=== PATIENT | female | born 1950 | race Caucasian/White ===

== ENCOUNTER → 2023-02-06 13:02 | Outpatient (BNVA) | payer MEDICARE, SELFPAY | PROVIDERS: PCP Internal Medicine; Visit Provider Nurse Practitioner Family | DX: J44.9 Chronic obstructive pulmonary disease, unspecified (principal); F17.200 Nicotine dependence, unspecified, uncomplicated; Z79.52 Long term (current) use of systemic steroids | CPT/HCPCS: 94618; 96372; 99202; J2930 ==

== ENCOUNTER 2023-03-07 10:44 | Outpatient (REF) | payer MEDICARE, SELFPAY ==
--- NOTE | ~2023-03-07 | CT_ITS ---
EXAMINATION: CT CHEST WITHOUT CONTRAST CLINICAL INFORMATION: COPD COMPARISON: None available. TECHNIQUE: Multidetector volumetric CT imaging of the chest was done. Axial MIP volume rendering provided. Sagittal and coronal reformatted images were obtained. This CT examination was performed using dose optimization techniques as appropriate, variously including the following: *Automated exposure control *Adjustment of mA and/or kV according to patient size (this includes techniques or standardized protocols for targeted exams where dose is matched to indication/reason for exam; i.e. extremities or head) *Use of iterative reconstruction technique DLP: 106 mGy-cm FINDINGS: LUNGS: Apical scarring is present, left greater than right. Scattered punctate calcified granulomas are seen (for example 6:39 and 54). No significant bullous changes are seen. There is some mild subpleural reticular change most prominent in the left upper lobe anteriorly (for example 6:97) which may represent some very early fibrosis. Right middle lobe and lingular scarring are present. No consolidations. MEDIASTINUM: Heart size normal. No mediastinal or hilar lymphadenopathy. Unremarkable aorta aside from calcific plaque. CORONARY ARTERY CALCIFICATION: Moderate PLEURA: There is no pleural effusion. No pleural mass or thickening. AXILLA: No lymphadenopathy. UPPER ABDOMEN: There is a 2 mm left upper pole renal calculus present. A calcified granuloma is noted on the surface of the liver (12:58). OSSEOUS STRUCTURES: Unremarkable. CT/CT chest wo IV con IMPRESSION: 1. No worrisome lung mass is seen. 2. No convincing evidence of emphysema. 3. Incidental note made of some punctate calcified granulomas, some mild subpleural reticular changes which may represent some early fibrosis. 4. Incidental note made of a 2 mm left upper pole nonobstructing renal calculus and a calcified hepatic granuloma. Fleischner guidelines were followed.
== END 2023-03-07 10:45 | disposition home or self-care (01) ==
LOC: HO.CT 10:44
PROVIDERS: PCP Internal Medicine; Visit Provider Nurse Practitioner Family
DX: J44.9 Chronic obstructive pulmonary disease, unspecified (principal); F17.200 Nicotine dependence, unspecified, uncomplicated
CPT/HCPCS: 71250

== ENCOUNTER → 2023-03-20 10:47 | Outpatient (BNVA) | payer MEDICARE, SELFPAY | PROVIDERS: PCP Internal Medicine; Visit Provider Nurse Practitioner Family | DX: J44.9 Chronic obstructive pulmonary disease, unspecified (principal); F17.200 Nicotine dependence, unspecified, uncomplicated | CPT/HCPCS: 99212 ==

== ENCOUNTER 2023-04-11 11:17 | Outpatient (REF) | payer MEDICARE, SELFPAY ==
--- NOTE | 2023-04-11 12:16 | PFT_ITS ---
FLOWS: 1. FEV1 60% of predicted at 1.16 L. 2. FVC 86% of predicted at 2.20 L. 3. FEV1 to FVC ratio of 0.53. 4. No bronchodilator response. LUNG VOLUMES: 1. Total lung capacity 95% of predicted at 4.38 L. 2. Residual volume 111% of predicted at 2.23 L. 3. Slow vital capacity 81% of predicted at 2.05 L. 4. Expiratory reserve volume 80% of predicted at 0.43 L. 5. Diffusion capacity is mildly decreased. IMPRESSION: Moderate obstructive and ventilatory defect with no bronchodilator response. Decreased diffusion capacity suggests emphysema. Carson Gillis MD AP/MODL / [id number]
== END 2023-04-11 11:18 | disposition home or self-care (01) ==
LOC: HO.RESP 11:17
PROVIDERS: PCP Internal Medicine; Visit Provider Nurse Practitioner Family
DX: J44.9 Chronic obstructive pulmonary disease, unspecified (principal)
CPT/HCPCS: 94060; 94727; 94729

== ENCOUNTER → 2023-04-11 12:16 | Outpatient (BNV) | payer MEDICARE, SELFPAY | PROVIDERS: PCP Internal Medicine; Visit Provider Internal Medicine Pulmonary Disease | DX: J44.9 Chronic obstructive pulmonary disease, unspecified (principal) | CPT/HCPCS: 94060; 94727; 94729 ==

== ENCOUNTER 2025-08-14 14:12 | Outpatient (AMB) | payer MEDICARE, SELFPAY ==
--- NOTE | 2025-08-14 14:14 | MHC.OFFVIS ---
Vital Signs 08/14/25 14:15 Height 5 ft 1 in Weight 106 lb 6 oz BMI 20.1 BP 120/58 L Blood Pressure Location Rt brachial Position Sitting Pulse 85 Pulse Source Pulse Oximeter Pulse Oximetry (%) 97 Oxygen Delivery Method Room Air Intake Visit Reasons: COPD Allergies Penicillins Allergy (Severe, Verified 08/14/25 14:17) Anaphylaxis HPI HPI COPD: Details: Julee is a very pleasant 75 year old female, 55+ pack-year smoker with underlying COPD and anxiety. She was last seen in 2022, lost to follow up and presents to reestablish care. PFT 2022 demonstrated moderate COPD and prior chest CT 02/2023 demonstrated punctate calcified granulomas, some mild subpleural reticular changes which may represent some early fibrosis otherwise unremarkable. Patient admitted over the summer for acute respiratory failure with hypoxia secondary to COPD exacerbation, CXR at that time unremarkable and had been discharged with supplemental oxygen, 2L continuously. She states that she recently returned the O2 as she did not feel she was benefitting from it and not interested in pursuing again. She also reported she is no longer on Trelegy as the cost is too expensive, she has been without for two weeks, using chronic prednisone 5 mg QD and albuterol MDI multiple times per week. She does not have a nebulizer for home use. She continues to report dyspnea with moderate exertion with intermittent wheezing and cough. Of note, patient continues to smoke and is planning on cessation in September. [facility] Social History Patient Tobacco Use Status: Current everyday Tobacco user Tobacco use type: Cigarette Cigarette Packs Per Day: 1 Cigarettes Per Day: 20 Years Smoked: 50+ Review of Systems Const Denies chills, Denies excessive sweating, Denies fever(s), Denies headache(s), Denies night sweats and Denies weight loss Eyes Denies dry eyes, Denies irritation and Denies itchy eyes ENT Reports Normal hearing present, Denies headache(s), Denies nasal congestion, Denies nasal discharge, Denies post nasal drip and Denies sore throat Card Denies chest pain, Denies chest pain at rest, Denies chest pain with activity, Denies claudication, Denies leg edema, Denies orthopnea and Denies paroxysmal nocturnal dyspnea Resp Denies pain on inspiration, Denies pain with cough and Denies stridor Neuro Reports Normal hearing present and Denies headache(s) Endo Denies excessive sweating Esteban/Lymph Denies lymphadenopathy Aller/Immun Denies itchy eyes and Denies seasonal rhinorrhea Physical Exam Vital Signs: Last Vital Signs Pulse 85 08/14/25 14:15 BP 120/58 L 08/14/25 14:15 Pulse Ox 97 08/14/25 14:15 Oxygen Delivery Method Room Air 08/14/25 14:15 BMI result Body Mass Index 20.1 Const General: cooperative, healthy appearing, no acute distress, well developed and alert Orientation/consciousness: patient oriented x3 Limitations: no limitations HEENT Head: Yes normal to inspection, Yes normocephalic and Yes atraumatic Ears: hearing grossly normal bilaterally and external ears normal Eyes General: appearance normal, both eyes and all related structures Eyelids: Yes eyelids normal Sclerae: sclerae normal EOM: EOMs intact bilaterally Neck Neck: Yes normal visual inspection and Yes no lymphadenopathy Lymphatic: no lymphadenopathy noted Chest Chest palpation & inspection: normal inspection of the chest Resp Effort & Inspection: normal respiratory effort, able to speak in complete sentences, no audible wheezes, no cough, no stridor, not tachypneic, no tripod positioning and no use of accessory muscles Auscultation: no crackles, no rhonchi, no wheezes and diminished lung sounds Cardio Jugular venous distension: no JVD Rate: regular rate Rhythm: regular rhythm Skin Other: warm, dry General skin exam: no rashes or lesions noted Neuro General: patient oriented x3 Cranial nerves: Yes Normal hearing present Cognition (Neuro): normal cognition Gait exam (Neuro): Normal gait present Extrem General: Yes normal to inspection, Yes capillary refill normal, Yes no clubbing, cyanosis or edema and Yes no pedal edema Psych Appearance: grossly normal and well kempt Speech and movement: Normal speech and movement present and Clear speech present Affect: normal affect Attitude: cooperative Thought process: Normal thought process present Thought content: Normal thought content present Insight: Good insight present (Psych) Judgement: Good judgement present (Psych) Results Reviewed Results Reviewed: RESULT: Chest 2 Views Frontal and Lat Chest 2 Views Frontal and Lat Hx of Present Illness: SOB worse over the past week. Worse on exertion. Denies fever. +Cough. Also c o chest tightness.; Reason: Chest Pain COMPARISON: None. FINDINGS: LINES AND TUBES: None. LUNGS AND PLEURA: Clear lungs. Normal pulmonary vascularity. No evidence of pleural effusion. No pneumothorax. HEART, MEDIASTINUM AND LUCIANO: Heart is normal in size. Normal mediastinal and hilar contour. BONES AND SOFT TISSUES: No acute abnormality. IMPRESSION: No acute abnormality. WSN: [id number] Ordering Physician: Romulo Ramirez I Reason For Exam Chest Pain;Other: Signature Line Dictated By: Mehdi Jaimes MD Dictated Date/Time: 05/18/25 12:48 p Reviewed By: Mehdi Jaimes MD Signed By: Mehdi Jaimes MD Signed Date/Time: 05/18/25 12:48 pm Transcribed By: [address] [address] [address] Scan Report Signed Patient: Julee Henao MR#: [id number] : 1950 Acct:[id number] Age/Sex: 72 / F ADM Date: 03/07/23 Loc: HO.CT Attending Dr: Anca Saxena NP Ordering Physician: Anca Saxena NP Date of Service: 03/07/23 Procedure(s): CT chest wo IV con Accession Number(s): [id number] cc: Anca Saxena NP~ EXAMINATION: CT CHEST WITHOUT CONTRAST CLINICAL INFORMATION: COPD COMPARISON: None available. TECHNIQUE: Multidetector volumetric CT imaging of the chest was done. Axial MIP volume rendering provided. Sagittal and coronal reformatted images were obtained. This CT examination was performed using dose optimization techniques as appropriate, variously including the following: *Automated exposure control *Adjustment of mA and/or kV according to patient size (this includes techniques or standardized protocols for targeted exams where dose is matched to indication/reason for exam; i.e. extremities or head) *Use of iterative reconstruction technique DLP: 106 mGy-cm FINDINGS: LUNGS: Apical scarring is present, left greater than right. Scattered punctate calcified granulomas are seen (for example 6:39 and 54). No significant bullous changes are seen. There is some mild subpleural reticular change most prominent in the left upper lobe anteriorly (for example 6:97) which may represent some very early fibrosis. Right middle lobe and lingular scarring are present. No consolidations. MEDIASTINUM: Heart size normal. No mediastinal or hilar lymphadenopathy. Unremarkable aorta aside from calcific plaque. CORONARY ARTERY CALCIFICATION: Moderate PLEURA: There is no pleural effusion. No pleural mass or thickening. AXILLA: No lymphadenopathy. UPPER ABDOMEN: There is a 2 mm left upper pole renal calculus present. A calcified granuloma is noted on the surface of the liver (12:58). OSSEOUS STRUCTURES: Unremarkable. CT/CT chest wo IV con IMPRESSION: 1. No worrisome lung mass is seen. 2. No convincing evidence of emphysema. 3. Incidental note made of some punctate calcified granulomas, some mild subpleural reticular changes which may represent some early fibrosis. 4. Incidental note made of a 2 mm left upper pole nonobstructing renal calculus and a calcified hepatic granuloma. Fleischner guidelines were followed. Dictated By: Claude Giang MD Signed By: <Electronically signed by Claude Giang MD in OV> 03/16/23 1227 DD/ 1126 TD/TT: Email Marketing Intern: MARY Assessment & Plan Assessment & Plan (1) COPD (chronic obstructive pulmonary disease): Code(s): J44.9 - Chronic obstructive pulmonary disease, unspecified Category: Medical (2) Tobacco dependence: Code(s): F17.200 - Nicotine dependence, unspecified, uncomplicated Category: Medical (3) History of acute respiratory failure: Code(s): Z87.09 - Personal history of other diseases of the respiratory system Category: Medical Plan At this time, Julee is agreeable to trial Symbicort as Trelegy was not financially feasible. She is aware to call if unable to obtain. We discussed trialing all nebulized therapy however she declined. She was not interested in repeating a PFT or overnight oximetry to assess her need for supplemental oxygen a NOC. There was question of early fibrosis with noted subpleural reticular changes on prior CT chest 02/2023 in addition to continued smoking, will repeat chest CT to assess for progression. She is requesting this order to be sent to [facility]. She is aware if her symptoms worsen or do not improve to call the office. All questions were answered and patient is in agreement of plan. Will follow up in 3 months or sooner if needed. Orders: Orders CT chest wo IV con Today R09.02 - Hypoxemia Medications: New albuterol sulfate 90 mcg/actuation 2 puffs inhalation Q4-6H PRN 1 ea 3RF shortness of breath or wheezing budesonide-formoterol 160-4.5 mcg/actuation (Symbicort) 2 puffs inhalation Q12H 10.2 grams 3RF Coding Level of Care Code Est Pt Level 4 (58806) Diagnoses COPD (chronic obstructive pulmonary disease) J44.9 Tobacco dependence F17.200 History of acute respiratory failure Z87.09
[2025-08-14 14:15] VITALS: BP 120/58; PULSE 85; O2SAT 97; BMI 20.1
--- OUTSIDE RECORDS SUMMARY | 2025-08-14 14:33 | XMS_ITS | Encounter Summary ---
Author Organization [email or web address] Address [address] [place] [address] Care Team Providers Care Secy Name Role Phone Tiffanie Miller SECRETARY OF POLICE Primary Care Provider Unavailable Rina Dubon Unavailable Unavailable Inactive/Transferred Primary Care Provider Unava ilable Reason for Visit * Reason Comments Med Refill Encounter Details Date Type Department Care Team (Late st Contact Info) Description 12/06/2023 Refill [place] [facility] [address] [place] [address] Adele Hutchins FNP Other osteoporosis without current pathological fracture; Vitamin D deficiency Social History Tobacco Use Types Packs/Day Years Used Date Smoking Tobacco: Every Day Cigarettes 1 58.9 Started: 1966 Smokeless Tobacco: Never Comments:Trying to cut down. Alcohol Use Standard Drinks/Week Comments Yes 0 (1 standard drink = 0.6 oz pur e alcohol) Rare beer intake Housing Stability Answer Date Recorded What is your housing situation today? I have marieva haywood 11/14/[address] you li ve. Do you have problems with any of the following? None of the above 11/14/2023 Food Insecurity Answer Date Recorded Within the past 12 months, y ou worried that your food would run out before you got money to buy more: Never True 11/14/2023 Within the past 12 months,th e food you bought just didn't last and you didn't have enough money to get more: Never True Transportation Answer Date Recorded In the past 12 months, has l ack of transportation kept you from medical appts, meetings, work or from getting things needed for daily living? No 11/14/2023 Utilities Answer Date Recorded In the past 12 months, has t he electric, gas, oil or water company threatened to shut off services in your home? No 11/14/2023 Depression Answer Date Recorded Patient Health Questionnaire-2 Score 0 06/27/2023 Education Answer Date Recorded What is the highest level of school you have completed or the highest degree you have received? 12th grade 06/27/2023 Comments Unknown Sex and Gender Information Value Date Recorded Sex Assigned at Female 09/06/2022 10:57 AM EST Legal Sex Female 8:34 PM EDT Gender Identity Female 09/06/2022 10:57 AM EST Sexual Orientation Choose not to disclose 2022 7:58 AM EDT Occupation Industry Job Start Date Job End Date retired Not on file Not on file Not on file documented as of this encounter Plan of Treatment Not on file documented as of this encounter Visit Diagnoses Diagnosis Other osteoporosis without current pathological fracture Vitamin D deficiency documented in this encounter Care Teams Secy Relationship Specialty Start Date End Date Tiffanie Miller FNP PCP - General Family Medicine 12/07/22 12/31/24 Inactive/Transferred PCP - General 01/01/25 01/01/25 Rina Dubon Community Health Worker 01/29/23 documented as of this encounter
--- OUTSIDE RECORDS SUMMARY | 2025-08-14 14:33 | XMS_ITS | Encounter Summary ---
Author Organization [employer] Address [address] [place] [address] Care Team Providers Care Rivet Catcher Name Role Phone Tiffanie Miller Primary Care Provider Unavailable Rina Dubon Unavailable Unavailable Inactive/Transferred Primary Care Provider Unava ilable Encounter Details Date Type Department Care Team (Late st Contact Info) Description 11/15/2023 Orders Only [facility] [address] [place] [address] Tiffanie Miller FNP Social History Tobacco Use Types Packs/Day Years Used Date Smoking Tobacco: Every Day Cigarettes 1 58.9 Started: 1966 Smokeless Tobacco: Never Comments:Trying to cut down. Alcohol Use Standard Drinks/Week Comments Yes 0 (1 standard drink = 0.6 oz pur e alcohol) Rare beer intake Housing Stability Answer Date Recorded What is your housing situation today? I have mari haywood 11/14/[address] you [...] on file documented as of this encounter Procedures Procedure Name Priority Date/Time Associated Diagnosis Comments BI MAMMOGRAM SCREENING TOMOSYNTHESIS BILATERAL Routine 12/03/2023 10:[address] CHEST WO CONTRAST Routine 03/07/2023 9:40 AM EDT documented in this encounter Results * BI Mammogram Screening Tomosynthesis Bilateral (12/03/2023 10:33 AM EDT) Anatomical Region Laterality Modality Breast Bilateral Mammography 12/03/2023 10:3 3 AM EDT Narrative 12/03/2023 11:18 AM EDT PROCEDURE: MM Digital Mammo Screening INDICATION: Screening for breast cancer. No known palpable abnormalities. COMPARISON: Prior mammograms most recently dated 11/30/2022. TECHNIQUE: Full-field digital CC and MLO 3D tomosynthesis images of both breasts were acquired. Computer-aided detection (CAD) was utilized in the interpretation of this study. DENSITY: The breast tissue is heterogeneously dense, which may obscure masses. FINDINGS: No suspicious masses, suspicious microcalcifications, or areas of architectural distortion are seen in either breast to suggest malignancy. IMPRESSION: No mammographic evidence of malignancy. RECOMMENDATION: Annual mammographic screening BI-RADS: 1 (Negative) Lay letter mailed to patient WSN: [id number] Ordering Physician: Tiffanie Miller Dictated By: Tari Figueroa MD Dictated Date/Time: 12/03/23 11:15 am Reviewed By: Tari Figueroa MD Signed By: Tari Figueroa MD Signed Date/Time: 12/03/23 11:15 am Transcribed By: [facility] Cashier Date/Time: 12/03/23 11:10 am Birads: Procedure Note Thee, Image - 12/03/2023 PROCEDURE: MM Digital Mammo Screening INDICATION: Screening for breast cancer. No known palpableabnormalities. COMPARISON: Prior mammograms most recently dated 11/30/2022. TECHNIQUE: Full-field digital CC and MLO 3D tomosynthesis images of bothbreasts were acquired. Computer-aided detection (CAD) was utilized in theinterpretation of this study. DENSITY: The breast tissue is heterogeneously dense, which may obscuremasses. FINDINGS: No suspicious masses, suspicious microcalcifications, or areasof architectural distortion are seen in either breast to suggestmalignancy. IMPRESSION: No mammographic evidence of malignancy. RECOMMENDATION: Annual mammographic screening BI-RADS: 1 (Negative) Lay letter mailed to patient WSN: [id number] Ordering Physician: Tiffanie Miller Dictated By: Tari Figueroa MD Dictated Date/Time: 12/03/23 11:15 am Reviewed By: Tari Figueroa MD Signed By: Tari Figueroa MD Signed Date/Time: 12/03/23 11:15 am Transcribed By: [facility] Date/Time: 12/03/23 11:10 am Birads: Tiffanie BATISTA IMG BI PROCEDURES Marianne l Result * CT Chest w/o Contrast (03/07/2023 9:40 AM EDT) Anatomical Region Laterality Modality Body, Chest Computed Tomogra phy Tiffanie BATISTA IMG CT PROCEDURES Marianne l Result documented in this encounter Visit Diagnoses Not on filedocumented in this encounter Care Teams Rivet Catcher Relationship Specialty Start Date End Date Tiffanie Miller FNP PCP - General Family Medicine 12/07/22 12/31/24 Inactive/Transferred PCP - General 01/01/25 01/01/25 Rina Dubon Community Health Worker 01/29/23 documented as of this encounter
--- OUTSIDE RECORDS SUMMARY | 2025-08-14 14:33 | XMS_ITS | Clinical Summary ---
Author Organization [employer] Address [address] [facility] [address] [place] [address] Care Team Providers Care Marine Diesel Technician Name Role Phone Rina Dubon Unavailable Unavailable Allergies Active Allergy Reactions Criticality Noted Date Comments Dust Mite Extract Low 08/11/2022 Dust Molds & Smuts Low 08/11/2022 Penicillin G Anaphylaxis High 08/11/2022 Other reaction(s): tongue swelling Penicillins Anaphylaxis High 11/13/2022 Other reaction(s): anaphylaxis Pollen Extract Low 08/11/2022 Environmental allergies, trees, weeds Medications fexofenadine (Mely) 180 MG tablet Take by mouth. 1 Active alendronate (Fosamax) 70 MG tablet TAKE 1 TABLET BY MOUTH EVERY 7 DAYS 12 tablet 1 4 Active ergocalciferol (Vitamin D2) 1.25 MG (14809 UT) capsuleIndication s:Other osteoporosis without current pathological fracture,Vitamin D deficiency TAKE 1 CAPSULE BY MOUTH ONE TIME PER WEEK 8 capsule 4 Active clotrimazole (Lotrimin) 1 % creamIndications: Vaginal irritation APPLY TO AFFECTED AREA TWICE A DAY FOR 14 DAYS 45 g 4 Active Budeson-Glycopyrr ol-Formoterol (Breztri Aerosphere) 160-9-4.8 MCG/ACT aerosolIndication s:Chronic bronchitis, unspecified chronic bronchitis type (CMS/HCC) ([facility]) INHALE 1 PUFF INTO LUNGS TWICE DAILY 10.7 g 1 4 Active albuterol 108 (90 Base) MCG/ACT inhalerIndication s:Simple chronic bronchitis (CMS/HCC) ([facility]) Inhale 1 puff every 4 (four) hours if needed for wheezing. 18 g 1 4 Active cyanocobalamin (Vitamin B-12) 1000 MCG tabletIndications :Vitamin B 12 deficiency TAKE 1 TABLET BY MOUTH IN THE MORNING 90 tablet 4 5 Active folic acid (Folvite) 400 MCG tabletIndications :Vitamin B 12 deficiency TAKE 1 TABLET (0.4 MG) BY MOUTH IN THE MORNING. 90 tablet 4 5 01/29/20 26 Active predniSONE (Deltasone) 5 MG tabletIndications :Chronic bronchitis, unspecified chronic bronchitis type (CMS/HCC) ([facility]) TAKE 1 TABLET BY MOUTH WITH FOOD OR MILK ONCE A DAY 90 tablet 5 Active montelukast (Singulair) 10 MG tablet TAKE 1 TABLET BY MOUTH EVERY DAY 90 tablet 5 Active Active Problems Problem Noted Date Diagnosed Date COPD (chronic obstructive pulmonary disease) Overview (06/27/2023): Stopped Predisone 5mg 06/2022: no change in s/s. Followed by bottom steep tender at [place]. LDCT: cat 2 nodules; done at [place] (will request) PFT: done at [place] (will request) Female cystocele 08/11/2022 Dry eye 08/11/2022 Age-related nuclear cataract of both eyes 2021 Age-related cataract of both eyes 08/11/2022 Glaucoma suspect of both eyes 08/11/2022 Other osteoporosis without current pathological fracture 08/11/2022 Overview (12/06/2023): Tolerating fosamax once weekly Dexa 11/2021 showing osteoporosis per WHO criteria. Repeat DEXA 11/2023 shows ongoing OSTEOPOROSIS per WHO criteria. Spine: BMD values have increased 3.5% from previous scan. Hip: BMD values have increased 22.8% from previous scan. Femoral neck: BMD values have increased 6.9% from previous scan. Assessment & Plan (12/06/2023 9:29 AM EDT): Continue fosamax weekly. Discussed BMD values remain within Osteoporosis category but improved on treatment of fosamax. Discussed relationship between vitamin D and calcium on bone density. Discussed negative impact of intermodal dispatcher steroid on bone density. Discussed impact of lifestyle on BMD. Continued to encourage smoking and ETOH cessation. Encouraged healthy diet and activity as tolerated. Patient verbalizes strong understanding. Major depressive disorder, s samson episode, in partial remission 08/11/2022 Sun-damaged skin 08/11/2022 Chronic fatigue 08/11/2022 Mixed incontinence urge and stress 08/11/2022 Overview (06/27/2023): Seeing urologist in [place]. No notes to review - will requets. Cogwheel rigidity 08/11/2022 Smoker 08/11/2022 Overview (06/27/2023): 1 ppd x 50 years Started at age: 17 Menthols Trying to cut down. Tried Patch (ineffective) Tried gum (dislikes). Chantix: nightmares, ineffective Moderate episode of recurren t major depressive disorder (CMS/HCC) 08/11/2022 Depression with anxiety 08/11/2022 Resolved Problems Problem Noted Date Diagnosed Date Resolved Date Adult idiopathic generalized osteoporosis 08/11/2022 09/06/2022 Fatty liver 08/11/2022 09/06/2022 Seasonal allergic rhinitis 08/11/2022 1 11/07/2021 Cigarette nicotine dependenc e without complication 08/11/2022 09/06/2022 Age-related osteoporosis wit hout current pathological fracture 08/11/2022 09/06/2022 Encounters Date Type Department Care Team Description 05/28/2025 Nicolette Lisa [facility] [address] [place] [id number] Nydia Michael DO from Last 3 Months Immunizations Immunization Administration Dates Next Due Hep A, Adult 09/06/2022 Hep B, adult 09/06/2022 Influenza High-dose Quadriva lent Preservative Free 06/27/2023,06/22/2022 Influenza Quadrivalent Adjuvanted 07/15/2021 Influenza, High Dose Seasona l, Preservative Free 06/19/2024,06/22/2022,07/13/2020,05/26,06/14/2018,06/28/2017 Influenza, IIV3, injectable 07/25/2021,0 05/26/2019,06/14/2018,06/28,07/05/2016,07/14/2015,07/09/2014 ,06/26/2013 Influenza, Split (incl. denilson fied surface antigen) 06/26/2012,07/26/2011 Pfizer Covid-19 Vaccine 12+ 07/29/2021,,12/08/2020 Pneumococcal Conjugate PCV 13 07/15/2015 Pneumococcal Polysaccharide PPSV23 07/01/2019,,11/02/2006 RSV Adjuvant 06/19/2024 TD (adult), 2 Lf tetanus tox oid, preservative free, adsorbed 07/25/2022,03/01/2022,07/06/2010 Tdap 02/14/2012 Zoster, Recombinant 03/07/2023 Family History Medical History Relation Name Comments Macular degeneration Mother Relation Name Status Comments Mother Social History Tobacco Use Types Packs/Day Years Used Date Smoking Tobacco: Every Day Cigarettes 1 58.9 Started: 1966 Passive Smoke Exposure: Current Smokeless Tobacco: Never Tobacco Cessation:Ready to Q uit: Not Asked; Counseling Given: Not Answered Comments:Trying to cut down. Alcohol Use Standard Drinks/Week Comments Yes 0 (1 standard drink = 0.6 oz pur e alcohol) Rare beer intake Alcohol Answer Date Recorded How often do you have a drink containing alcohol ? 0 06/21/2024 How many drinks containing a lcohol do you have on a typical day when you are drinking? 0 06/21/2024 How often do you have six or more drinks on one occasion? 0 06/21/2024 Housing Stability Answer Date Recorded What is [...] things needed for daily living? No 11/14/2023 Intimate Partner Violence Answer Date R ecorded Within the last year, have y ou been afraid of your partner or ex-partner? 2 06/21/2024 Within the last year, have y ou been humiliated or emotionally abused in other ways by your partner or ex-partner? 2 Within the last year, have y ou been kicked, hit, slapped, or otherwise physically hurt by your partner or ex-partner? 2 06/21/2024 Within the last year, have y ou been raped or forced to have any kind of sexual activity by your partner or ex-partner? 2 06/21/2024 Utilities Answer Date Recorded In the past 12 months, has t he electric, gas, oil or water company threatened to shut off services in your home? No 11/14/2023 Depression Answer Date Recorded Patient Health Questionnaire-2 Score 0 06/27/2023 Internet Access Answer Date Recorded Internet Access Q1 Yes 06/21/2024 Internet Access Q2 I do not want or need it 05/26 Education Answer Date Recorded What is the highest level of school you have completed or the highest degree you have received? 12th grade 06/27/2023 Comments No Sex and Gender Information Value Date Recorded Sex Assigned at Female 09/06/2022 10:57 AM EST Legal Sex Female 8:34 PM EDT Gender Identity Female 09/06/2022 10:57 AM EST Sexual Orientation Choose not to disclose 2022 7:58 AM EDT Occupation Industry Job Start Date Job End Date retired Not on file Not on file Not on file Last Filed Vital Signs Vital Sign Reading Time Taken Comments Blood Pressure 140/71 06/21/2024 11:23 AM EDT Pulse 102 06/21/2024 11:23 AM EDT Temperature 36.5 C (97.7 F) 06/21/2024 11:23 AM EDT Respiratory Rate 16 11/14/2023 12:12 PM EST Oxygen Saturation 91% 06/21/2024 11:23 AM EDT Inhaled Oxygen Concentration - - Weight 49.6 kg (109 lb 4.8 oz) 06/21/2024 11:23 AM EDT Height 152.4 cm (5') 06/21/2024 11:23 AM EDT Body Mass Index 21.35 06/21/2024 11:23 AM EDT Plan of Treatment Health Maintenance Due Date Last Done Comments CT Colonography 1950 FIT DNA/Cologuard 1950 FIT 1950 FOBT 1950 Sigmoidoscopy 1950 Alcohol/Substance Use Screening 1962 Hepatitis B Vaccines (2 of 3 - 19+ 3-dose series) 10/04/2022 09/06/2022 Zoster Vaccines (2 of 2) 05/02/2023 03/07/2023 Depression Screening 06/27/2024 06/27/2023, 06/27/20 23 SDOH Screening 11/14/2024 11/14/2023 COVID-19 Vaccine (4 - 2024- season) 2025 07/29/2021, 12/29/2020, 12/08/2020 Tobacco Screening 06/21/2025 06/21/2024 Colonoscopy 10/06/2029 10/06/2019, 10/06/2019 Colorectal Cancer Screening 10/06/2029 DTaP/Tdap/Td Vaccines (4 - Td or Tdap) 07/25/2032 07/25/2022, 03/01/2022, 02/14/2012, Additional history exists Pneumococcal Vaccine: 50+ Years Completed 07/01/2019, 07/15/2015, 08/26/2008, Additional history exists Hepatitis A Vaccines Aged Out 09/06/2022 No long er eligible based on patient's age to complete this topic Hepatitis C Screening Completed 09/06/2022 RSV Patients and Patients Aged 60 years or older Completed 06/19/2024 Influenza Vaccine Completed 05/29/2025, , 06/27/2023, Additional history exists HIB Vaccines Aged Out No longer eligi ble based on patient's age to complete this topic HPV Vaccines Aged Out No longer eligi ble based on patient's age to complete this topic IPV Vaccines Aged Out No longer eligi ble based on patient's age to complete this topic Meningococcal B Vaccine Aged Out No l onger eligible based on patient's age to complete this topic Meningococcal Vaccine Aged Out No ami chema eligible based on patient's age to complete this topic RSV under 20 months Aged Out No longe r eligible based on patient's age to complete this topic Rotavirus Vaccines Aged Out No longer eligible based on patient's age to complete this topic Procedures Procedure Name Priority Date/Time Associated Diagnosis Comments HEPATITIS C ANTIBODY W/RFLX HCV QUANT PCR AND GENOTYPE Routine 09/06/2022 11:52 AM EST Encounter for hepatitis C screening test for low risk patient COLONOSCOPY Routine 10/06/2019 from Last 3 Months or Most Recently Relevant to Health Maintenance Results * Hepatits C Antibody w/Reflex HCV Quant PCR and Genotyping (09/06/2022 11:52 AM EST) Hepatitis C Virus Ab, Serum NEGATIVE (NEG) [facility] Comment: Reference range: Negative This test was performed on the [employer] Color Print Inspector immunoassay system. Testing performed or reported by [facility], a Service of [facility], [address] [place] [address] [place] [address] Otilio Self MD, Junior Project Manager [facility]# [id number] 09/06/2022 11:5 2 AM EST 09/06/2022 11:53 AM EST Tiffanie Miller HOT FRAME TENDER LAB BLOOD ORDERABLES F inal Result [facility] [address] [place] [address] * Colonoscopy (10/06/2019) Colonoscopy 3 year recall Historical Provider HEALTH MAINTENANCE Final Result from Last 3 Months or Most Recently Relevant to Health Maintenance Insurance [employer] Care Teams Marine Diesel Technician Relationship Specialty Start Date End Date Rina Dubon Community Health Worker 01/29/23
--- OUTSIDE RECORDS SUMMARY | 2025-08-14 14:33 | XMS_ITS | Encounter Summary ---
Author Organization [employer] Address [address] [facility] [address] [place] [address] Care Team Providers Care Beaver Trapper Name Role Phone Tiffanie Miller LEAN FACILITATOR Primary Care Provider Unavailable Rina Dubon Unavailable Unavailable Inactive/Transferred Primary Care Provider Unava ilable Encounter Details Date Type Department Care Team (Late st Contact Info) Description 12/09/2023 Orders Only [place] [facility] [address] [place] [address] Provider, MD Rere Social History Tobacco Use Types Packs/Day Years [...] Procedure Name Priority Date/Time Associated Diagnosis Comments BONE DENSITY/DEXA (HIPS, PELVIS OR SPINE) Routine 11/22/2021 9:24 AM EST documented in this encounter Results * BONE DENSITY/DEXA (HIPS, PELVIS OR SPINE) (11/22/2021 9:24 AM EST) Anatomical Region Laterality Modality L-spine N/A Radiographic Samantha ging Historical Provider MD ANSARI DXA PROCEDURES Final Result documented in this encounter Visit Diagnoses Not on filedocumented in this encounter Care Teams Beaver Trapper Relationship Specialty Start Date End Date Tiffanie Miller FNP PCP - General Family Medicine 12/07/22 12/31/24 Inactive/Transferred PCP - General 01/01/25 01/01/25 Rina Dubon Community Health Worker 01/29/23 documented as of this encounter
--- OUTSIDE RECORDS SUMMARY | 2025-08-14 14:33 | XMS_ITS | Encounter Summary ---
Author Organization [employer] Address [address] [facility] [address] [place] [address] Care Team Providers Care Nurse Sane Name Role Phone Tiffanie Miller Primary Care Provider Unavailable Rina Dubon Unavailable Unavailable Inactive/Transferred Primary Care Provider Unava ilable Reason for Visit * Reason Comments Med Refill Encounter Details Date Type Department Care Team (Late st Contact Info) Description 06/14/2024 Refill [place] [facility] [address] [place] [address] iTffanie Miller FNP Chronic bronchitis, unspecified chronic bronchitis type (CMS/HCC) Social History Tobacco Use Types Packs/Day Years [...] on file documented as of this encounter Miscellaneous Notes * Telephone Encounter - Perla Guzman LPN - 06/18/2024 12:24 PM EDT Spoke with patient Advised of provider message. Pa states never mind with the prednisone. If she wont fill it then never mind . * Telephone Encounter - Perla Guzman LPN - 06/16/2024 12:02 PM EDT Per patient pulmonary has not been handling these refills [facility] has been. documented in this encounter Plan of Treatment Not on file documented as of this encounter Visit Diagnoses Diagnosis Chronic bronchitis, unspecified chronic bronchitis type (CMS/HCC) (HCC) documented in this encounter Care Teams Nurse Sane Relationship Specialty Start Date End Date Tiffanie Miller FNP PCP - General Family Medicine 12/07/22 12/31/24 Inactive/Transferred PCP - General 01/01/25 01/01/25 Rina Dubon Community Health Worker 01/29/23 documented as of this encounter
== END 2025-08-14 15:02 | disposition home or self-care (01) ==
LOC: HO.HPSW 14:13
PROVIDERS: PCP Internal Medicine; Visit Provider Nurse Practitioner Family
DX: J44.9 Chronic obstructive pulmonary disease, unspecified (principal); F17.200 Nicotine dependence, unspecified, uncomplicated; Z87.09 Personal history of other diseases of the respiratory system
CPT/HCPCS: 99214

== ENCOUNTER → 2025-08-14 14:12 | Outpatient (BNVA) | payer MEDICARE, SELFPAY | PROVIDERS: PCP Internal Medicine; Visit Provider Nurse Practitioner Family | DX: J44.9 Chronic obstructive pulmonary disease, unspecified (principal); F17.200 Nicotine dependence, unspecified, uncomplicated; Z87.09 Personal history of other diseases of the respiratory system | CPT/HCPCS: 99212 ==